=== PATIENT | female | born 1950 | race Caucasian/White ===

== ENCOUNTER 2018-09-20 14:15 | Emergency (ER) | payer SELFPAY ==
[~2018-09-20] VITALS: Ht 182.9 cm; Wt 109.1 kg
[2018-09-20 14:20] VITALS: Ht 182.9 cm; Wt 109.1 kg
[2018-09-20] MEDS ORDERED: ARMOUR THYROID120 MG PO (14:24)
[2018-09-20] MEDS ORDERED: OMEPRAZOLE40 MG PO (14:25)
[2018-09-20] MEDS ORDERED: VASOTEC5 MG PO (14:25)
[2018-09-20] MEDS ORDERED: REQUIP5 MG PO (14:25)
[2018-09-20] MEDS ORDERED: ZOFRAN4 MG PO (17:18)
[2018-09-20] MEDS ORDERED: SKELAXIN800 MG PO (17:22)
[2018-09-20 17:47] VITALS: BP 155/83
== END 2018-09-20 17:42 | disposition home or self-care (01) ==
LOC: D.ER 14:15
DX: S09.90XA Unspecified injury of head, initial encounter (principal); W19.XXXA Unspecified fall, initial encounter; T14.8XXA Other injury of unspecified body region, initial encounter; I10 Essential (primary) hypertension; K21.9 Gastro-esophageal reflux disease without esophagitis